=== PATIENT | male | born 1975 | race African-American/Black ===

== ENCOUNTER 2019-09-29 13:58 | Emergency (ER) | payer OTHER | END 2019-09-29 14:24 | disposition home or self-care (01) | LOC: ERS 13:58 | DX: U07.1 COVID-19 (principal); E11.9 Type 2 diabetes mellitus without complications; Z79.84 Long term (current) use of oral hypoglycemic drugs; Z79.899 Other long term (current) drug therapy | CPT/HCPCS: 87635; 99283; U0003 ==

== ENCOUNTER 2019-10-05 13:19 | Emergency (ER) | payer OTHER ==
[2019-10-05] MEDS ORDERED: Ketorolac Tromethamine 30 MG/ML VIAL ONE (13:51)
--- NOTE | 2019-10-05 14:18 | RAD ---
Exam: Chest one view HISTORY:Generalized weakness. COVID positive patient. Comparison: 09/28/2011, 08/10/2015 FINDINGS: Cardiac silhouette: Normal Aorta: Unremarkable Pulmonary vessels: Normal Costophrenic angles: Clear LUNGS: Diminished lung volumes. Patchy interstitial and alveolar opacities are presumed to represent atypical viral pneumonia. Pneumothorax: None Osseous abnormalities: None IMPRESSION: Viral pneumonia with patchy interstitial and alveolar opacities. Continued surveillance.
[2019-10-05 14:33] LABS: #Lymphocytes 1.5 thou/uL (1.20-3.40); #Monocytes 0.4 thou/uL (0.11-0.59); #Neutrophils 2.5 thou/uL (1.40-6.50); %Eosinophils 0.7 % (0.0-10.0); %Lymphocytes 34.2 % (21.0-51.0); %Monocytes 8.2 % (0.0-10.0); %Neutrophils 56.9 % (42.0-75.0); Mean Corpuscular HGB CONC 33.5 g/dL (32.0-36.0); Mean Corpuscular Hemoglobin 29.2 pg (27.0-31.0); Mean Corpuscular Volume 87.1 fL (78.0-98.0); Mean Platelet Volume 9.3 fL (7.4-10.4); Platelet Count 149 thou/uL (130-400); RBC Distribution Width 11.2 % (11.5-14.5); White Blood Cell (WBC) Count 4.4 thou/uL (4.8-10.8)
[2019-10-05 14:59] LABS: ALT (SGPT) 39 U/L (8-55); AST (SGOT) 38 U/L (5-34); Albumin 3.1 g/dL (3.5-5.0); Alkaline Phosphatase 52 U/L (40-110); Anion Gap 10 mmol/L (10-20); BUN (Urea Nitrogen) 9 mg/dL (8.9-20.6); Bilirubin, Total 0.6 mg/dL (0.2-1.2); CK (CPK) 53 U/L (30-200); Calc. Creatinine Clearance 0 mL/min (70-130); Calcium 7.9 mg/dL (7.8-10.44); Carbon Dioxide 28 mmol/L (22-29); Chloride 98 mmol/L (98-107); Estimated GFR-MDRD Greater than 90; Globulin 3.5 g/dL (2.4-3.5); Glucose 240 mg/dL (70-105); Lipase 14 U/L (8-78); Potassium 3.7 mmol/L (3.5-5.1); Protein, Total 6.6 g/dL (6.0-8.3); Sodium 132 mmol/L (136-145)
== END 2019-10-05 16:29 | disposition home or self-care (01) ==
LOC: ERS 13:19
DX: U07.1 COVID-19 (principal); E11.9 Type 2 diabetes mellitus without complications; Z79.84 Long term (current) use of oral hypoglycemic drugs; Z79.899 Other long term (current) drug therapy
CPT/HCPCS: 36415; 36416; 71045; 80053; 82550; 83690; 84484; 85025; 93005; 96361; 96374; J1885

== ENCOUNTER 2020-04-11 06:51 | Inpatient (IN) | payer OTHER, SELFPAY ==
[2020-04-11 07:14] LABS: #Eosinphils 0.3 thou/uL (0.0-0.7); #Lymphocytes 2.9 thou/uL (1.20-3.40); #Monocytes 0.5 thou/uL (0.11-0.59); #Neutrophils 3.9 thou/uL (1.40-6.50); %Basophils 0.6 % (0.0-1.0); %Eosinophils 3.7 % (0.0-10.0); %Lymphocytes 37.9 % (21.0-51.0); %Monocytes 6.5 % (0.0-10.0); %Neutrophils 51.4 % (42.0-75.0); Hemoglobin 15.4 g/dL (14.0-18.0); Mean Corpuscular HGB CONC 35.6 g/dL (32.0-36.0); Mean Corpuscular Hemoglobin 30.5 pg (27.0-31.0); Mean Corpuscular Volume 85.9 fL (78.0-98.0); Mean Platelet Volume 9.6 fL (7.4-10.4); Platelet Count 193 thou/uL (130-400); RBC Distribution Width 11.4 % (11.5-14.5); Red Blood Cell (RBC) Count 5.05 mill/uL (4.70-6.10); White Blood Cell (WBC) Count 7.7 thou/uL (4.8-10.8)
[2020-04-11 07:35] LABS: ALT (SGPT) 25 U/L (8-55); AST (SGOT) 23 U/L (5-34); Albumin 3.9 g/dL (3.5-5.0); Alkaline Phosphatase 111 U/L (40-110); Anion Gap 14 mmol/L (10-20); BUN (Urea Nitrogen) 10 mg/dL (8.9-20.6); Bilirubin, Total 0.4 mg/dL (0.2-1.2); Calc. Creatinine Clearance 0 mL/min (70-130); Calcium 9.1 mg/dL (7.8-10.44); Carbon Dioxide 27 mmol/L (22-29); Chloride 98 mmol/L (98-107); Globulin 4.3 g/dL (2.4-3.5); Glucose 273 mg/dL (70-105); Potassium 3.9 mmol/L (3.5-5.1); Protein, Total 8.2 g/dL (6.0-8.3); Sodium 135 mmol/L (136-145)
--- NOTE | 2020-04-11 07:41 | CT ---
CT BRAIN NONCONTRAST: DATE: 04/11/2020 7:32 AM HISTORY: Level 2 stroke: 44-year-old male with acute onset left sided weakness Dr. Johns gave verbal report to Dr. Guzman at 7:38 AM 04/11/2020 FINDINGS: There is no evidence of acute intra-axial or extra-axial hemorrhage. There is no midline shift or any other mass effect. There is no extra-axial fluid collection. There is no evidence of obstructive hydrocephalus. Calvarium is intact. IMPRESSION: No acute intracranial findings.
[2020-04-11] MEDS ORDERED: Nitroglycerin 0.4 MG TAB 1 EACH ONE ×2 (07:48→10:20)
[2020-04-11] MEDS ORDERED: Aspirin Chewable 81 MG TAB ONE (08:09)
--- NOTE | 2020-04-11 08:12 | CT ---
CT ANGIOGRAM NECK WITH CONTRAST CT ANGIOGRAM BRAIN WITH CONTRAST: DATE: 04/11/2020 7:44 AM HISTORY: 44-year-old male acute stroke. Acute left-sided weakness. At 8:09 AM 04/11/2020 Dr. Johns gave verbal report to nurse Raffi Prado. She will relay the message to Tiffani Guzman. TECHNIQUE: After IV contrast injection, arterial bolus chasing technique scan performed from AP window to vertex of head. Coronal and sagittal 3-D MIP reconstructions. FINDINGS: No calcified atherosclerotic plaque visualized in any vessel. Bilateral MCAs: No M1 segment thrombus or occlusion. Bilateral ACAs: A1 and A2 segments patent. Intracranial vertebrals: Right side dominant. Left side terminates in PICA. No occlusion. Basilar: Patent Bilateral basketball player: Bilateral P1 and P2 segments patent Bilateral P-comm patent. Bilateral carotid siphons: Patent Bilateral cervical ICAs: Normal Bilateral common carotids: Bovine origin on the left. Otherwise normal. Brachiocephalic: Normal Right subclavian: Normal Right vertebral: Dominant and normal. Left vertebral: Origin and proximal several centimeters obscured. No occlusion or high-grade acquired stenosis elsewhere IMPRESSION: Negative
[2020-04-11 08:13] LABS: Prothrombin Time 13.2 sec (12.0-14.7)
--- NOTE | 2020-04-11 08:15 | RAD ---
RADIOGRAPH CHEST 1 VIEW: DATE: 04/11/2020 HISTORY: 44-year-old male with chest pain FINDINGS: There are no airspace densities, pulmonary edema, pneumothorax, or cardiomegaly. The lateral costophr enic angles are sharp. IMPRESSION: No acute cardiopulmonary findings.
[2020-04-11 08:17] LABS: CK (CPK) 211 U/L (30-200); Lipase 36 U/L (8-78)
[2020-04-11] MEDS ORDERED: Nitroglycerin 50 MG/250 ML BOT 0 ML ONE (10:19)
[2020-04-11 10:37] LABS: Bilirubin Negative (Negative); Blood, Urine Negative (Negative); Clarity Clear (Clear); Glucose, Urine (Dipstick) Greater than 1000 mg/dL (Negative); Ketone, Urine Trace mg/dL (Negative); Leukocyte Negative Leu/uL (Negative); Nitrite Negative (Negative); Protein, Urine (Dipstick) 10 mg/dL (Neg-Trace); Urobilinogen Normal mg/dL (Less than 2)
[2020-04-11] MEDS ORDERED: Nitroglycerin 2% Ointment 1 INCH/1 GM Packet ONE (10:40)
[2020-04-11 10:41] LABS: Specific Gravity, Urine Greater than 1.060 (1.002-1.036)
[2020-04-11 10:42] LABS: Troponin I 0.022 ng/mL (< 0.028)
[2020-04-11 12:01] LABS: SARS-CoV-2 NAA Rapid Test Not Detected (NotDetected)
[2020-04-11] MEDS ORDERED: Acetaminophen 650 MG Suppository PR PRN (12:02)
[2020-04-11] MEDS ORDERED: Nitroglycerin 0.4 MG TAB (25 Tab Bottle) SL PRN (12:12)
[2020-04-11] MEDS ORDERED: Dextrose 50% Abboject 50 ML SYRINGE SLOW IVP PRN (12:13)
[2020-04-11] MEDS ORDERED: Dextrose 5% in Water 1,000 ML IV PRN (12:13)
--- NOTE | 2020-04-11 12:36 | PDOC.HHP ---
Hospitalist HPI - History of Present Illness History of Present Illness: ADMISSION DATE: 04/11/2020 TIME OF ASSESSMENT: 1100 PRIMARY CARE PHYSICIAN: None CHIEF COMPLAINT: Chest pain HPI: This is a 44-year-old gentleman who presents to the emergency department with complaints of left-sided chest pain and an elevated blood pressure in the 200s. Patient states he first started feeling unwell on Wednesday with nausea vomiting and diarrhea. He was having multiple stools a day up until Wednesday. Denies noting any blood per rectum. He was able to tolerate food intake after Wednesday and states he is attempted to maintain adequate hydration. He began to experience lightheadedness and weakness. Reports having difficulty sleeping due to feeling generally unwell. He woke up early hours this morning with left- sided chest pain which he describes as tightness with a stabbing sensation. It was a 7 out of 10 in severity and he had concurrent pain radiating up his left arm. Denies any trauma or injuries and did not have any reproducible chest wall pain. He noted his systolic blood pressure was elevated in the 200s. This prompted him to come into the emergency department. On arrival to the emergency department he had an EKG done which showed a normal sinus rhythm with a heart of 99. He was noted to have a complete right bundle branch block. He was given nitroglycerin which immediately relieved his chest discomfort. It was not until he was examined that he realize he was experie ncing reduced sensation in the left lower extremity. No numbness or weakness elsewhere. Denies any facial numbness weakness or slurred speech. Not experience any dizziness or staggering gait. No visual disturbances. Of note patient states that he tested positive for Covid in September 2019. ROS: Denies having any recent fevers chills or sweats. He does complain of discomfort in the back of his head and neck. He has good range of motion with no stiffness or rigidity. Denies having any urinary symptoms. No abdominal pain. Denies any shortness of breath or palpitations. No recent cough or hemoptysis. No lower extremity swelling. All other review systems are negative apart from what is mentioned above in HPI. ED COURSE: Patient came into the emergency department as a level [address] brain without contrast showed no acute intracranial findings. He had laboratory studies that showed a white cell count of 7.7, hemoglobin 15.4, hematocrit 43.4, platelets 193, neutrophils 51.4%. Sodium 135, BUN 10, creatinine 0.93, GFR greater than 90, potassium 3.9. Glucose was 73. Alk phos 111, total bilirubin 0.4, AST 23, ALT 25, albumin 3.9. Initial troponin negative. Lipase 36. CK 211. BNP less than 10. Chest x-ray demonstrated no acute cardiopulmonary findings. CT angiogram of the head and neck was unremarkable. Urinalysis notable for greater than 1000 glucose and trace ketones, otherwise negative. Rapid Covid testing and influenza a as well as B testing were all negative. Patient initially received 324 mg of baby aspirin and nitroglycerin sublingual 0.4 mg. A second dose of nitro was 2 hours later and then 1 inch of Nitro-Bid was applied. PAST MEDICAL HISTORY: 1. Type 2 diabetes mellitus 2. Hypertension 3. Hyperlipidemia PAST SURGICAL HISTORY: None SOCIAL HISTORY: Patient lives alone and is fully independent. Denies any tobacco use, alcohol consumption or drug use. FAMILY HISTORY: Noncontributory ALLERGIES: No known drug allergies CURRENT MEDICATIONS: 1. Glipizide 10 mg p.o. daily 2. Metformin 1000 mg p.o. daily 3. Losartan 50 mg p.o. daily 4. Atorvastatin 40 mg p.o. daily 5. Coreg 6.25 mg p.o. twice daily - Exam General Appearance: NAD, awake alert General - other findings: VS: Temp 98.9, HR RR 96, BP 165/92, RR 18, O2 sat 99% on room air Eye: PERRL, anicteric sclera Eye - other findings: left scleritis ENT: normocephalic atraumatic, no oropharyngeal lesions, moist mucosa Neck: supple, no lymphadenopathy Heart: RRR, no murmur, no gallops, no rubs, normal peripheral pulses Respiratory: CTAB, no wheezes, no rales, no ronchi, normal chest expansion Gastrointestinal: soft, non-tender, non-distended, normal bowel sounds Extremities: no edema Skin: normal turgor, no lesions, no rashes Neurological: cranial nerve grossly intact, no weakness Neurological - other findings: reduced sensation in LLE, denies having this before Musculoskeletal: normal tone, normal strength, no muscle wasting, generalized weakness Psychiatric: normal affect, normal behavior, A&O x 3 Hospitalist Results - Labs Result Diagrams: 04/11/20 07:00 04/11/20 07:00 Lab results: WBC 7.7 thou/uL (4.8-10.8) 04/11/20 07:00 Hgb 15.4 g/dL (14.0-18.0) 04/11/20 07:00 Hct 43.4 % (42.0-52.0) 04/11/20 07:00 MCV 85.9 fL (78.0-98.0) 04/11/20 07:00 Plt Count 193 thou/uL (130-400) 04/11/20 07:00 Neutrophils % 51.4 % (42.0-75.0) 04/11/20 07:00 Sodium 135 mmol/L (136-145) L 04/11/20 07:00 Potassium 3.9 mmol/L (3.5-5.1) 04/11/20 07:00 Chloride 98 mmol/L (98-107) 04/11/20 07:00 Carbon Dioxide 27 mmol/L (22-29) 04/11/20 07:00 BUN 10 mg/dL (8.9-20.6) 04/11/20 07:00 Creatinine 0.93 mg/dL (0.7-1.3) 04/11/20 07:00 Glucose 273 mg/dL (70-105) H 04/11/20 07:00 Calcium 9.1 mg/dL (7.8-10.44) 04/11/20 07:00 Total Bilirubin 0.4 mg/dL (0.2-1.2) 04/11/20 07:00 AST 23 U/L (5-34) 04/11/20 07:00 ALT 25 U/L (8-55) 04/11/20 07:00 Alkaline Phosphatase 111 U/L (40-110) H 04/11/20 07:00 Creatine Kinase 211 U/L (30-200) H 04/11/20 07:00 Troponin I 0.022 ng/mL (< 0.028) 04/11/20 10:09 B-Natriuretic Peptide Less than 10.0 pg/mL (0-100) 04/11/20 07:00 Serum Total Protein 8.2 g/dL (6.0-8.3) 04/11/20 07:00 Albumin 3.9 g/dL (3.5-5.0) 04/11/20 07:00 Lipase 36 U/L (8-78) 04/11/20 07:00 Urine Ketones Trace mg/dL (Negative) A 04/11/20 10:14 Urine Blood Negative (Negative) 04/11/20 10:14 Urine Nitrite Negative (Negative) 04/11/20 10:14 Ur Leukocyte Esterase Negative Cecil/uL (Negative) 04/11/20 10:14 - Radiology Interpretation CT scan - head Status: report reviewed by me Hospitalist H&P A/P - Problem (1) Chest pain Code(s): R07.9 - CHEST PAIN, UNSPECIFIED Status: Acute (2) Left leg paresthesias Code(s): R20.2 - PARESTHESIA OF SKIN Status: Acute (3) Light-headedness Code(s): R42 - DIZZINESS AND GIDDINESS Status: Acute (4) Nausea vomiting and diarrhea Code(s): R11.2 - NAUSEA WITH VOMITING, UNSPECIFIED; R19.7 - DIARRHEA, UNSPECIFIED Status: Acute (5) Diabetes mellitus type 2 in obese Code(s): E11.69 - TYPE 2 DIABETES MELLITUS WITH OTHER SPECIFIED COMPLICATION; E66.9 - OBESITY, UNSPECIFIED Status: Chronic (6) Hypertension Code(s): I10 - ESSENTIAL (PRIMARY) HYPERTENSION Status: Chronic (7) Hyperlipidemia Code(s): E78.5 - HYPERLIPIDEMIA, UNSPECIFIED Status: Chronic - Plan Plan: Chest pain- R/O ACS Currently pain free Repeat EKG to assess for dynamic changes Cardiac monitoring Continue nitro paste, aspirin and statin Check TSH and Mg+, fasting lipid panel Trend troponins Would benefit from stress test given comorbidities Awaiting COVID testing results LLE Paraesthesias, R/O CVA CT Brain and CTA Head/Neck unremarkable. Echo ordered Carotid US Neuro checks Neuro consult Lightheadedness, likely secondary to dehydration Continue IV fluids If diarrhea recurs, check stool studies Orthostatic BPs N/V/D Has settled, was taking Imodium at home If diarrhea recurs, check stool studies as mentioned above Zofran PRN for nausea Diabetes mellitus, type 2 Monitor glucose (Accu-cheks ACHS) Sliding scale initiated Hypertension Uncontrolled, improved with nitro pase Continue to monitor BP Resume home meds once verified Hyperlipidemia Resume statin Check lipid panel with AM labs GI Prophylaxis: Famotidine DVT Prophylaxis: Mechanical SCDs
[2020-04-11] MEDS ORDERED: Iopamidol-370 76% 500 ML 1 ML ONE (13:45)
[2020-04-11] MEDS ORDERED: Labetalol HCl 100 MG/20 ML VIAL ONE (15:23)
[2020-04-11] MEDS: Labetalol HCl 100 MG/20 ML VIAL SLOW IVP PRN (15:34)
--- NOTE | 2020-04-11 15:42 | CON ---
NEUROLOGY CONSULTATION DATE OF CONSULTATION: 04/11/2020 HISTORY OF PRESENT ILLNESS: Rule out stroke. HISTORY OF PRESENT ILLNESS: Mr. Murali Diop is a 44-year-old male with medical history significant for diabetes, hypertension, and hyperlipidemia, presented to the emergency room with left-sided chest pain and elevated blood pressure into 200s. The patient started feeling sick on Wednesday with nausea, vomiting, diarrhea. He had multiple stools and then unable to keep anything down. This morning, he woke up with left-sided chest pain with tightness. He also noted left lower extremity paresthesias, so Neurology was consulted to rule out stroke. The patient denies any focal weakness, slurred speech, double vision, blurred vision, vertigo, facial numbness, difficulty speaking or swallowing, or loss of vision associated with the episode of left lower extremity paresthesias. He was COVID positive in September 2019, but currently denies any fever or shortness of breath. REVIEW OF SYSTEMS: All systems reviewed and were negative except the pertinent positives and negatives mentioned in the HPI. PAST MEDICAL HISTORY: Diabetes mellitus, hypertension, hyperlipidemia. PAST SURGICAL HISTORY: None. SOCIAL HISTORY: The patient lives alone and is independent. Denies smoking, alcohol, or illegal drug use. FAMILY HISTORY: No family history of stroke. ALLERGIES: NO KNOWN DRUG ALLERGIES. HOME MEDICATIONS: 1. Glipizide 10 mg p.o. daily. 2. Metformin 1000 mg p.o. daily. 3. Losartan 50 mg p.o. daily. 4. Atorvastatin 40 mg p.o. daily. 5. Coreg 6.25 mg twice daily. VS: Temp 98.9, HR RR 96, BP 165/92, RR 18, O2 sat 99% on room air PHYSICAL EXAMINATION: General Appearance: NAD, awake alert Eye: PERRL, anicteric sclera ENT: normocephalic atraumatic, no oropharyngeal lesions, moist mucosa Neck: supple, no lymphadenopathy Heart: RRR, no murmur, no gallops, no rubs, normal peripheral pulses Respiratory: CTAB, no wheezes, no rales, no ronchi, normal chest expansion Gastrointestinal: soft, non-tender, non-distended, normal bowel sounds Extremities: no edema Skin: normal turgor, no lesions, no rashes Neurological: Mental status; the patient is alert and oriented to person, place, and time. Speech is clear. Cranial nerves 2 through 12 are intact. Motor, muscle tone and bulk are normal. Moving all 4 extremities equally and symmetrically. He does have generalized weakness. Sensory, decreased sensation to touch in the left lower extremity. Gait deferred due to patient's safety reason. DATA REVIEWED: I reviewed the labs, which were significant for mild hyponatremia at 135 and hyperglycemia at 273. Head CT reviewed, which was negative for acute intracranial pathology. Chest x-ray did not reveal any acute cardiopulmonary process. CT angiogram of the head and neck was unremarkable. Urinalysis showed greater than 1000 glucose and trace ketones, otherwise negative. Rapid COVID testing as well as influenza B was all negative. The patient was given aspirin and nitroglycerin in the ED. Lab results: WBC 7.7 thou/uL (4.8-10.8) 04/11/20 07:00 Hgb 15.4 g/dL (14.0-18.0) 04/11/20 07:00 Hct 43.4 % (42.0-52.0) 04/11/20 07:00 MCV 85.9 fL (78.0-98.0) 04/11/20 07:00 Plt Count 193 thou/uL (130-400) 04/11/20 07:00 Neutrophils % 51.4 % (42.0-75.0) 04/11/20 07:00 Sodium 135 mmol/L (136-145) L 04/11/20 07:00 Potassium 3.9 mmol/L (3.5-5.1) 04/11/20 07:00 Chloride 98 mmol/L (98-107) 04/11/20 07:00 Carbon Dioxide 27 mmol/L (22-29) 04/11/20 07:00 BUN 10 mg/dL (8.9-20.6) 04/11/20 07:00 Creatinine 0.93 mg/dL (0.7-1.3) 04/11/20 07:00 Glucose 273 mg/dL (70-105) H 04/11/20 07:00 Calcium 9.1 mg/dL (7.8-10.44) 04/11/20 07:00 Total Bilirubin 0.4 mg/dL (0.2-1.2) 04/11/20 07:00 AST 23 U/L (5-34) 01/07/21 07:00 ALT 25 U/L (8-55) 04/11/20 07:00 Alkaline Phosphatase 111 U/L (40-110) H 04/11/20 07:00 Creatine Kinase 211 U/L (30-200) H 04/11/20 07:00 Troponin I 0.022 ng/mL (< 0.028) 04/11/20 10:09 B-Natriuretic Peptide Less than 10.0 pg/mL (0-100) 04/11/20 07:00 Serum Total Protein 8.2 g/dL (6.0-8.3) 04/11/20 07:00 Albumin 3.9 g/dL (3.5-5.0) 04/11/20 07:00 Lipase 36 U/L (8-78) 04/11/20 07:00 Urine Ketones Trace mg/dL (Negative) A 04/11/20 10:14 Urine Blood Negative (Negative) 04/11/20 10:14 Urine Nitrite Negative (Negative) 04/11/20 10:14 Ur Leukocyte Esterase Negative Cecil/uL (Negative) 04/11/20 10:14 - Radiology Interpretation CT scan - head Status: report reviewed by me ASSESSMENT AND PLAN: (1) Left leg paresthesias Code(s): R20.2 - PARESTHESIA OF SKIN Status: Acute (2) Chest pain Code(s): R07.9 - CHEST PAIN, UNSPECIFIED Status: Acute (3) Light-headedness Code(s): R42 - DIZZINESS AND GIDDINESS Status: Acute (4) Nausea vomiting and diarrhea Code(s): R11.2 - NAUSEA WITH VOMITING, UNSPECIFIED; R19.7 - DIARRHEA, UNSPECIFIED Status: Acute (5) Diabetes mellitus type 2 in obese Code(s): E11.69 - TYPE 2 DIABETES MELLITUS WITH OTHER SPECIFIED COMPLICATION; E66.9 - OBESITY, UNSPECIFIED Status: Chronic (6) Hypertension Code(s): I10 - ESSENTIAL (PRIMARY) HYPERTENSION Status: Chronic (7) Hyperlipidemia Code(s): E78.5 - HYPERLIPIDEMIA, UNSPECIFIED Status: Chronic Mr. Murali Diop is consulted for left lower extremity paresthesias, associated with chest pain, to rule out stroke. Head CT reviewed, which was negative for acute intracranial pathology. CTA of the head and neck was unremarkable. Consider MRI of the brain to rule out acute intracranial process, 2D echo to evaluate for left ventricular ejection fraction, telemetry to rule out arrhythmias. Start aspirin and high-intensity statin for secondary stroke prevention. Check hemoglobin A1c, fasting lipid panel, and TSH. Neuro checks every 4 hours. Permissive control of blood pressure at this time. Strict control of blood glucose. PT/OT/speech. Continue medical management per primary team and Cardiology. We will consider EEG to rule out cortical irritability. We will continue to follow. Thank you for the consult. Job ID: [id number] GIAN
[2020-04-11 16:54] VITALS: BMI 32.1
[2020-04-11] MEDS ORDERED: HumaLOG 300 UNITS/3 ML VIAL ONE (17:52)
[2020-04-11] MEDS: HumaLOG 300 UNITS/3 ML VIAL SC PRN ×2 (17:55→21:16)
[2020-04-11] MEDS ORDERED: Atorvastatin Calcium 40 MG TAB PO SCH (21:00)
[2020-04-11] MEDS: Famotidine 20 MG TAB PO SCH (21:15)
[2020-04-12] MEDS ORDERED: Acetaminophen 325 MG TAB ONE ×2 (00:17→09:38)
[2020-04-12 05:28] LABS: #Basophils 0.1 thou/uL (0.0-0.2); #Eosinphils 0.2 thou/uL (0.0-0.7); #Lymphocytes 2.6 thou/uL (1.20-3.40); #Monocytes 0.4 thou/uL (0.11-0.59); %Eosinophils 3.8 % (0.0-10.0); %Lymphocytes 40.5 % (21.0-51.0); %Monocytes 6.6 % (0.0-10.0); %Neutrophils 48.1 % (42.0-75.0); Hemoglobin 13.3 g/dL (14.0-18.0); Mean Corpuscular HGB CONC 33.9 g/dL (32.0-36.0); Mean Corpuscular Hemoglobin 29.4 pg (27.0-31.0); Mean Corpuscular Volume 86.6 fL (78.0-98.0); Mean Platelet Volume 9.6 fL (7.4-10.4); Platelet Count 161 thou/uL (130-400); RBC Distribution Width 11.6 % (11.5-14.5); Red Blood Cell (RBC) Count 4.53 mill/uL (4.70-6.10); White Blood Cell (WBC) Count 6.3 thou/uL (4.8-10.8)
[2020-04-12] MEDS: HumaLOG 300 UNITS/3 ML VIAL SC PRN ×4 (05:29→21:14)
[2020-04-12 05:55] LABS: Anion Gap 13 mmol/L (10-20); BUN (Urea Nitrogen) 13 mg/dL (8.9-20.6); Calc. Creatinine Clearance 174 mL/min (70-130); Calcium 8.6 mg/dL (7.8-10.44); Carbon Dioxide 27 mmol/L (22-29); Cardiac Risk 4.2 (Less than 4.5); Chloride 100 mmol/L (98-107); Cholesterol 104 mg/dl (< 200 Desired); Glucose 323 mg/dL (70-105); HDL Cholesterol 25 mg/dL (>60 Neg Risk); LDL Cholesterol, Calculated 27 mg/dL; Potassium 3.8 mmol/L (3.5-5.1); Sodium 136 mmol/L (136-145); Triglycerides 258 mg/dL (Less than 150)
[2020-04-12] MEDS ORDERED: FLU VACC QS2020-21(6MOS UP)/PF 60 MCG/0.5 ML SYRINGE IM ONE (09:00)
[2020-04-12] MEDS ORDERED: Famotidine 20 MG TAB ONE (09:24)
[2020-04-12] MEDS ORDERED: Aspirin Chewable 81 MG TAB ONE (09:25)
[2020-04-12] MEDS: Aspirin Chewable 81 MG TAB PO SCH (09:36)
[2020-04-12] MEDS: Famotidine 20 MG TAB PO SCH ×2 (09:36→21:00)
--- NOTE | 2020-04-12 09:43 | CT ---
CT ANGIOGRAM NECK WITH CONTRAST CT ANGIOGRAM BRAIN WITH CONTRAST: DATE: 04/11/2020 7:44 AM HISTORY: 44-year-old male acute stroke. Acute left-sided weakness. At 8:09 AM 04/11/2020 Dr. Johns gave verbal report to nurse Raffi Prado. She will relay the message to Tiffani Guzman. TECHNIQUE: After IV contrast injection, arterial bolus chasing technique scan performed from AP window to vertex of head. Coronal and sagittal 3-D MIP reconstructions. FINDINGS: No calcified atherosclerotic plaque visualized in any vessel. Bilateral MCAs: No M1 segment thrombus or occlusion. Bilateral ACAs: A1 and A2 segments patent. Intracranial vertebrals: Right side dominant. Left side terminates in PICA. No occlusion. Basilar: Patent Bilateral chief information officer: Bilateral P1 and P2 segments patent Bilateral P-comm patent. Bilateral carotid siphons: Patent Bilateral cervical ICAs: Normal Bilateral common carotids: Bovine origin on the left. Otherwise normal. Brachiocephalic: Normal Right subclavian: Normal Right vertebral: Dominant and normal. Left vertebral: Origin and proximal several centimeters obscured. No occlusion or high-grade acquired stenosis elsewhere IMPRESSION: Negative Transcribed Date/Time: 04/12/2020 9:42 AM
[2020-04-12] MEDS: Acetaminophen 325 MG TAB PO PRN ×2 (09:49→17:09)
--- NOTE | 2020-04-12 11:15 | PDOC.EEG ---
Neurology EEG Report - Report Report: This EEG was performed using 24 channel [employer] video EEG machine with 24 disc donny ctrodes. This was an extended 2 hours 9 minutes of inpatient video EEG recording. Digital analysis of the EEG was done for spike and seizure detection which revealed no abnormalities. Background: There is a non-sustained posterior background rhythm of 8.5 -9 Hz. The background rhythm attenuates with eye opening and enhances with eye closure. Hyperventilation: Not performed. Photic Stimulation: Not performed Sleep: Drowsiness and sleep are observed. EEG Diagnosis: Normal awake, drowsy and sleep EEG.
[2020-04-12] MEDS ORDERED: Losartan 25 MG TAB PO SCH (12:15)
[2020-04-12] MEDS ORDERED: Magnevist 469MG/ML 20 ML VIAL ONE (13:39)
--- NOTE | 2020-04-12 14:40 | MRI ---
MRI of thebrain with and without contrast: 04/12/2020 COMPARISON:None available HISTORY:Left arm pain, assess for acute infarction, left-sided weakness and high blood pressure TECHNIQUE: Multiplanar multisequence MR imaging of thebrain with and without contrast Findings:The diffusion weighted imaging demonstrates no evidence for acute infarction. The axial gradient echo imaging demonstrates no evidence for intracranial hemorrhage. The visualized paranasal sinuses and mastoid air cells appear well-aerated. 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 There is no midline shift or mass effect. No ventricular enlargement. Arterial flow voids at the axial level of the skull base appear grossly unremarkable on the T2-weight ed imaging. The postcontrast imaging demonstrates no abnormal enhancement within the brain parenchyma. IMPRESSION:No acute findings.
--- NOTE | 2020-04-12 14:44 | MRI ---
MRI cervical spine noncontrast: 04/12/2020 HISTORY: 44 year old male with cervical radiculopathy. Cervicalgia, and left shoulder and upper extremity pain and numbness. COMPARISON: None FINDINGS: Vertebral body heights are maintained. Cervical spinal cord is normal in size and signal. 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 This is exacerbated at some levels by cervical spondylosis. No major spondylolisthesis. Mostly low-grade bilateral facet DJD at multiple levels. Disc space narrowing is mild to moderate at C3-4, moderate at C4-5, mild to moderate at C5-6, and mod erate at C6-7. Endplate bone marrow edema on the right side at C4-5, and more extensively at C6-7, consistent with M odic type I changes. C1-2: No additional findings C2-3: No additional findings. C3-4: Little or no exacerbation of the developmentally small caliber spinal canal by minimal central disc protrusion (mild to moderate central stenosis. No neural foraminal stenosis C4-5: Small to moderate-sized bilateral uncinate process osteophytes cause severe right and moderate to severe left neural foraminal stenosis. Prominent broad-based disc protrusion versus disc-osteophyte complex indents ventral surface of spinal cord. Severe central spinal canal stenosis. C5-6: Moderate size bilateral uncinate process osteophytes causing severe bilateral neural foraminal stenosis. Broad-based disc protrusion or disc-osteophyte complex abuts ventral surface of spinal cord. Moderate to severe central spinal canal stenosis. C6-7: Broad-based disc-osteophytic bar complex encroaches upon anterior aspect of spinal canal. Moder ate central spinal canal stenosis. Small bilateral uncinate process osteophytes. Moderate right and severe left neural foraminal stenosis. C7-T1: No central or neural foraminal stenosis. IMPRESSION: 1.) Cervical spondylosis with multilevel mild and moderate degenerative disc disease. 2) multiple levels of high-grade central spinal canal stenosis (worst at C4-5), and high-grade bilate ral neural foraminal stenosis and stenosis (including severe). 3) high-grade Modic type I bone marrow edema at C6-7.
--- NOTE | 2020-04-12 15:21 | PDOC.NEUPN ---
- Subjective Encounter Date: 04/12/20 Subjective: Mr. Diop denies any new complaints in the last 24 hours. He continues to have left-sided paresthesias more in the left lower extremity - Objective Vital Signs & Weight: Vital Signs (12 hours) Temp Pulse Pulse Resp BP BP BP 04/12/20 13:13 88 164/103 H 175/107 H 04/12/20 12:00 98.0 F 92 20 148/102 H 04/12/20 08:00 98.6 F 98 15 151/93 H 04/12/20 03:57 98.1 F 92 18 157/97 H Pulse Ox 04/12/20 13:13 04/12/20 12:00 97 04/12/20 08:00 94 L 04/12/20 03:57 93 L Weight Admit Weight 230 lb Weight 230 lb I&O: 04/11/20 04/12/20 04/13/20 06:59 06:59 06:59 Intake Total 810 Output Total 500 Balance 310 Result Diagrams: 04/12/20 05:00 04/12/20 05:00 Additional Labs: Accuchecks 04/12/20 04/12/20 04/11/20 11:52 05:26 21:15 POC Glucose 323 H 288 H 330 H 04/11/20 17:50 POC Glucose 351 H Radiology Reviewed by me: Yes EKG Reviewed by me: Yes ROS - Review of Systems Constitutional: denies: fever, chills, sweats, weakness, malaise, other Eyes: denies: pain, vision change, conjunctivae inflammation, eyelid inflammation, redness, other ENT: denies: ear pain, ear discharge, nose pain, nose discharge, nose congestion, mouth pain, mouth swelling, throat pain, throat swelling, other Respiratory: reports: shortness of breath Genitourinary: denies: dysuria, frequency, incontinence, hematuria, retention, o ther Musculoskeletal: denies: neck pain, shoulder pain, arm pain, back pain, hand pain, leg pain, foot pain, other Skin: denies: rash, lesions, laura, bruising, other Neurological: reports: numbness - Medication Medications: Active Medications Generic Name Dose Route Start Last Admin Trade Name Freq PRN Reason Stop Dose Admin Acetaminophen 650 mg 04/11/20 12:02 04/12/20 09:49 Acetaminophen 325 Mg Tab PO 650 mg Q4H PRN Administration Headache/Fever/Mild Pain (1-3) Acetaminophen 650 mg 04/11/20 12:02 04/12/20 00:19 Acetaminophen 650 Mg Suppository IN 650 mg Q4H PRN Administration Headache/Fever/Mild Pain (1-3) Aspirin 81 mg 04/12/20 09:00 04/12/20 09:36 Aspirin Chewable 81 Mg Tab PO 81 mg DAILY ALLEN Administration Atorvastatin Calcium 80 mg 04/11/20 21:00 04/11/20 21:16 Atorvastatin Calcium 40 Mg Tab PO 80 mg HS ALLEN Administration Famotidine 20 mg 04/11/20 21:00 04/12/20 09:36 Famotidine 20 Mg Tab PO 20 mg BID ALLEN Administration Insulin Human Lispro 0 units 04/11/20 12:13 04/12/20 12:35 Humalog 300 Units/3 Ml Vial SC 5 unit .MILD SLIDING SCALE PRN Administration Mild Correctional Scale Insulin Human Lispro 0 units 04/11/20 12:13 04/11/20 21:16 Humalog 300 Units/3 Ml Vial SC 4 unit .BEDTIME SLIDING SC PRN Administration Bedtime Correctional Scale Labetalol HCl 10 mg 04/11/20 15:19 04/11/20 15:34 Labetalol Hcl 100 Mg/20 Ml Vial SLOW IVP 10 mg Q6H PRN Administration SBP >160 - Exam General Appearance: awake alert Eye: PERRL ENT: normocephalic atraumatic Neck: supple Respiratory: CTAB Cardiovascular: no murmur Gastrointestinal: soft Extremities: no cyanosis Skin: normal turgor Neurological: no new deficit Musculoskeletal: normal tone, normal strength, no muscle wasting PSYCH: normal affect, normal behavior, A&O x 3 Results - Labs Result Diagrams: 04/12/20 05:00 04/12/20 05:00 Lab results: WBC 6.3 thou/uL (4.8-10.8) 04/12/20 05:00 Hgb 13.3 g/dL (14.0-18.0) L 04/12/20 05:00 Hct 39.2 % (42.0-52.0) L 04/12/20 05:00 MCV 86.6 fL (78.0-98.0) 04/12/20 05:00 Plt Count 161 thou/uL (130-400) 04/12/20 05:00 Neutrophils % 48.1 % (42.0-75.0) 04/12/20 05:00 Sodium 136 mmol/L (136-145) 04/12/20 05:00 Potassium 3.8 mmol/L (3.5-5.1) 04/12/20 05:00 Chloride 100 mmol/L (98-107) 04/12/20 05:00 Carbon Dioxide 27 mmol/L (22-29) 04/12/20 05:00 BUN 13 mg/dL (8.9-20.6) 04/12/20 05:00 Creatinine 0.81 mg/dL (0.7-1.3) 04/12/20 05:00 Glucose 323 mg/dL (70-105) H 04/12/20 05:00 Lactic Acid 2.0 mmol/L (0.5-2.2) 04/11/20 13:48 Calcium 8.6 mg/dL (7.8-10.44) 04/12/20 05:00 Total Bilirubin 0.4 mg/dL (0.2-1.2) 04/11/20 07:00 AST 23 U/L (5-34) 04/11/20 07:00 ALT 25 U/L (8-55) 04/11/20 07:00 Alkaline Phosphatase 111 U/L (40-110) H 04/11/20 07:00 Creatine Kinase 211 U/L (30-200) H 04/11/20 07:00 Troponin I 0.018 ng/mL (< 0.028) 04/11/20 18:06 C-Reactive Protein 0.75 mg/dL (= or < 0.5) H 04/11/20 13:49 B-Natriuretic Peptide Less than 10.0 pg/mL (0-100) 04/11/20 07:00 Serum Total Protein 8.2 g/dL (6.0-8.3) 04/11/20 07:00 Albumin 3.9 g/dL (3.5-5.0) 04/11/20 07:00 Lipase 36 U/L (8-78) 04/11/20 07:00 Urine Ketones Trace mg/dL (Negative) A 04/11/20 10:14 Urine Blood Negative (Negative) 04/11/20 10:14 Urine Nitrite Negative (Negative) 04/11/20 10:14 Ur Leukocyte Esterase Negative Cecil/uL (Negative) 04/11/20 10:14 - Radiology Interpretation MRI - head Additional Comment: MRI of the brain did not reveal any acute intracranial pathology. PN A/P (1) Left leg paresthesias Code(s): R20.2 - PARESTHESIA OF SKIN Status: Acute (2) Light-headedness Code(s): R42 - DIZZINESS AND GIDDINESS Status: Acute (3) Chest pain Code(s): R07.9 - CHEST PAIN, UNSPECIFIED Status: Acute (4) Nausea vomiting and diarrhea Code(s): R11.2 - NAUSEA WITH VOMITING, UNSPECIFIED; R19.7 - DIARRHEA, UNSPECIFIED Status: Acute (5) Diabetes mellitus type 2 in obese Code(s): E11.69 - TYPE 2 DIABETES MELLITUS WITH OTHER SPECIFIED COMPLICATION; E6 6.9 - OBESITY, UNSPECIFIED Status: Chronic (6) Hyperlipidemia Code(s): E78.5 - HYPERLIPIDEMIA, UNSPECIFIED Status: Chronic (7) Hypertension Code(s): I10 - ESSENTIAL (PRIMARY) HYPERTENSION Status: Chronic - Plan Daily Plan: PT/OT, out of bed/ambulate Mr. Bradshaw is a 44-year-old male who was consulted for left lower extremity paresthesias but no weakness. Patient also complaining of some numbness in the left upper extremity associated with lightheadedness and chest pain. Initial head CT reviewed which was negative for acute intracranial pathology. CTA of the head and neck did not reveal hemodynamically significant stenosis. MRI of the brain reviewed which was negative for acute intracranial pathology. Cervical spine MRI showed moderate cervical spondylosis and high-grade stenosis at the C4-5 level . Consider neurosurgery input. Consider imaging of the lumbar spine. Neurochecks every 4 hours. EEG reviewed which was negative for seizure activity. 2D echo showed ejection fraction of 50 to 55%. No thrombus or PFO Cardiology on board regarding evaluation for chest pain. Continue home medications. Continue medical management per primary team . PT/OT Plan and results were discussed with the patient and the nursing staff
--- NOTE | 2020-04-12 15:51 | PDOC.FMACP ---
Advance Care Planning - Problem (1) Palliative care encounter Status: Acute Code(s): Z51.5 - ENCOUNTER FOR PALLIATIVE CARE (2) Left leg paresthesias Status: Acute Code(s): R20.2 - PARESTHESIA OF SKIN (3) Light-headedness Status: Acute Code(s): R42 - DIZZINESS AND GIDDINESS (4) Diabetes mellitus type 2 in obese Status: Chronic Code(s): E11.69 - TYPE 2 DIABETES MELLITUS WITH OTHER SPECIFIED COMPLICATION; E66.9 - OBESITY, UNSPECIFIED (5) Hyperlipidemia Status: Chronic Code(s): E78.5 - HYPERLIPIDEMIA, UNSPECIFIED (6) Hypertension Status: Chronic Code(s): I10 - ESSENTIAL (PRIMARY) HYPERTENSION - Note Participants: patient, palliative care Summary: Palliative care introduced Advanced Care Planning. The diagnosis, prognosis and goals of care were discussed. Appropriate forms and documentation to accomplish the goals of care were discussed. All questions were answered. Elected to complete MPOA, original given to patient and copy placed on chart for medical records. Directive to Physician provided for patient review. He elected not to complete at this time, however will consider in the future. Continue with full resuscitation and aggressive measures at this time. Please also refer to Palliative Care notes in note section. Palliative care will sign off as Directives addressed. If we can assist in the future with revisiting goal of care, complex decision making or revisiting Directive to physician please re consult our team. Thank you for this very appropriate consult. Time Spent (mins): 15
--- NOTE | 2020-04-12 16:59 | CON ---
DATE OF CONSULTATION: HISTORY OF PRESENT ILLNESS: The patient is a 44-year-old gentleman, who presented with headaches, left-sided weakness, and chest discomfort. The patient has a history of hypertension and diabetes mellitus. The patient has no known cardiac history. The patient was in his usual state of health when he acutely developed headaches. He noticed that his left arm was weak and numb as well as he had difficulty with dizziness and weakness. The patient also reported having left-sided chest discomfort. He reports that this has been a persistent discomfort throughout the last day. The patient states this lasted through the morning and has finally resolved. The patient denies having any PND or orthopnea. The patient has multiple cardiac risk factors including diabetes mellitus, hypertension, and dyslipidemia. PAST SURGICAL HISTORY: None SOCIAL HISTORY: Nonsmoker. MEDICATIONS: 1. Glipizide 10 daily. 2. Metformin 1000 daily. 3. Losartan 50 daily. 4. Lipitor 40 at bedtime. 5. Coreg 6.25 b.i.d. ALLERGIES: NO KNOWN DRUG ALLERGIES. FAMILY HISTORY: No strong family history of coronary artery disease. REVIEW OF SYSTEMS: Ten-point system otherwise unremarkable. PHYSICAL EXAMINATION: GENERAL: This is a well-developed gentleman, in no acute distress. VITAL SIGNS: Blood pressure was 175/107. NECK: No jugular venous distention. LUNGS: Clear to auscultation. HEART: Regular rate and rhythm. Normal S1 and S2. No murmurs. ABDOMEN: Nondistended. EXTREMITIES: Show no edema. VASCULAR: Radial pulses 2+. LABORATORY DATA: Sodium 136, potassium 3.8, chloride 100, bicarbonate 27, BUN 13, creatinine 0.81, and glucose is 323. His cholesterol is 104, triglycerides 258, LDL 27, and HDL 25. White blood cell count is 6.3, hemoglobin 13.3, hematocrit 39.2, and platelets are 161. IMAGING DATA: EKG normal sinus rhythm with left atrial enlargement and a right bundle-branch block. Echocardiogram normal left ventricular ejection fraction of 55% to 60% with moderate left ventricular hypertrophy. IMPRESSION: 1. Chest pain, probably secondary to poorly controlled hypertension. 2. Malignant hypertension. 3. Diabetes mellitus. 4. Dyslipidemia. 5. Diabetes. 6. Obesity. 7. Possible cerebrovascular accident. PLAN: This gentleman presented with left-sided weakness, chest pain, and malignant hypertension. The patient's chest pain has resolved once his blood pressure was controlled. His EKG shows no acute changes. The patient states he needs to be more compliant with his blood pressure medications and have been in control of his diabetes. We would recommend outpatient followup once the patient recovers from his acute illness. Neurology is evaluating the patient for a CVA and has recommended followup with Neurosurgery. We will follow this patient with you through his hospitalization. Job ID: [id number] MTDD
[2020-04-12] MEDS ORDERED: Carvedilol 6.25 MG TAB PO SCH (17:00)
[2020-04-12] MEDS: Carvedilol 6.25 MG TAB PO SCH (17:10)
--- NOTE | 2020-04-12 19:23 | PDOC.HOSPP ---
- Subjective Encounter Date: 04/12/20 Encounter Time: 12:00 Subjective: F/u: chest pain The patient states that his chest pain resolved. He does not get chest pain on exertion. He reports left arm numbness but no weakness. He reports neck pain and difficulty turning his neck . He reports an abnormal stress test in the past. He has had difficulty controlling his blood pressure lately He also states that his right side of his face keeps "lifting up" and is not sure why this keeps happening. He complains of severe headaches associated with this - Objective Vital Signs & Weight: Vital Signs (12 hours) Temp Pulse Pulse Resp BP BP BP 04/12/20 16:00 97.7 F 83 16 165/88 H 04/12/20 13:13 88 164/103 H 175/107 H 04/12/20 12:00 98.0 F 92 20 148/102 H 04/12/20 08:00 98.6 F 98 15 151/93 H Pulse Ox 04/12/20 16:00 96 04/12/20 13:13 04/12/20 12:00 97 04/12/20 08:00 94 L Weight Admit Weight 230 lb Weight 230 lb I&O: 04/11/20 04/12/20 04/13/20 06:59 06:59 06:59 Intake Total 810 800 Output Total 500 Balance 310 800 Result Diagrams: 04/12/20 05:00 04/12/20 05:00 Additional Labs: Accuchecks 04/12/20 04/12/20 04/12/20 17:03 11:52 05:26 POC Glucose 247 H 323 H 288 H 04/11/20 04/11/20 21:15 17:50 POC Glucose 330 H 351 H Hospitalist ROS - Review of Systems Constitutional: denies: fever, chills - Medication Medications: Active Medications Generic Name Dose Route Start Last Admin Trade Name Freq PRN Reason Stop Dose Admin Acetaminophen 650 mg 04/11/20 12:02 04/12/20 17:09 Acetaminophen 325 Mg Tab PO 650 mg Q4H PRN Administration Headache/Fever/Mild Pain (1-3) Acetaminophen 650 mg 04/11/20 12:02 04/12/20 00:19 Acetaminophen 650 Mg Suppository AR 650 mg Q4H PRN Administration Headache/Fever/Mild Pain (1-3) Aspirin 81 mg 04/12/20 09:00 04/12/20 09:36 Aspirin Chewable 81 Mg Tab PO 81 mg DAILY ALLEN Administration Carvedilol 12.5 mg 04/12/20 17:00 04/12/20 17:10 Carvedilol 6.25 Mg Tab PO 12.5 mg BID-WM ALLEN Administration Famotidine 20 mg 04/11/20 21:00 04/12/20 09:36 Famotidine 20 Mg Tab PO 20 mg BID ALLEN Administration Insulin Human Lispro 0 units 04/11/20 12:13 04/12/20 17:09 Humalog 300 Units/3 Ml Vial SC 3 unit .MILD SLIDING SCALE PRN Administration Mild Correctional Scale Insulin Human Lispro 0 units 04/11/20 12:13 04/11/20 21:16 Humalog 300 Units/3 Ml Vial SC 4 unit .BEDTIME SLIDING SC PRN Administration Bedtime Correctional Scale Labetalol HCl 10 mg 04/11/20 15:19 04/11/20 15:34 Labetalol Hcl 100 Mg/20 Ml Vial SLOW IVP 10 mg Q6H PRN Administration SBP >160 - Exam General Appearance: NAD, awake alert Eye: PERRL, anicteric sclera ENT: normocephalic atraumatic, no oropharyngeal lesions ENT - other findings: right facial swelling Neck: no JVD Heart: RRR, no murmur, no gallops, no rubs Respiratory: CTAB, no wheezes, no rales, no ronchi Gastrointestinal: soft, non-tender, non-distended, normal bowel sounds Extremities: no cyanosis, no clubbing, no edema Skin: normal turgor, no lesions Neurological - other findings: right ptosis. Musculoskeletal: normal tone, normal strength, no muscle wasting Psychiatric: A&O x 3 Hosp A/P - Plan MRI cervical spine: cervical spondylosis with multilevel degenerative changes. High grade central spinal stenosis worst at C4-C5 and high grade bilateral neural foraminal stenosis with bone marrow edema at C6-C7 This is a 44 year old male who presented with chest pain , hyperetensive urgecny and left arm numbness Hypertensive Urgency - BP was 170/100. I resumed home lisinopril and coreg for now Chest pain - troponin negative times three. Will consult cardiology. I do not see any abnormal stress tests on file but patient reports this was the case High grade cervical spinal stenosis with left arm radiculopathy - MRi cervical spine shows spinal stenosis around C4-C5 and bone marrow edema at C6-C7 - CT head, CTA head and neck and MRI brain show no significant stenosis and no stroke - will consult neurosurgery - continue with physical therapy and occupational therapy Will convert to inpatient status pending adequate control of BP, cardiology and neurosurgery eval
[2020-04-12] MEDS ORDERED: Atorvastatin Calcium 40 MG TAB PO SCH (21:00)
[2020-04-12] MEDS: Labetalol HCl 100 MG/20 ML VIAL SLOW IVP PRN (21:00)
[2020-04-13] MEDS ORDERED: traMADol HCl 50 MG TAB PO PRN (00:10)
--- NOTE | 2020-04-13 00:39 | CON ---
DATE OF CONSULTATION: 04/13/2020 HISTORY OF PRESENT ILLNESS: The patient is a 44-year-old male with a past medical history of diabetes, hypertension, and hyperlipidemia, who presented to the emergency department on 04/11/2020 for acute onset left-sided chest pain in the context of significant hypertension as well as some radiation down into the left chest and left arm dysesthesias. The patient was admitted to the medical service for cardiac rule out, as well as Neurology evaluation for stroke ro. The patient did not have any acute EKG changes and his pain has improved significantly once his blood pressure was better controlled. He is being followed by Cardiology and they are getting stress test. He was evaluated with MRI of the brain, which was unremarkable. During his admission, the patient also began complaining of some discomfort in the neck. He received a cervical MRI, which is notable for multilevel degenerative changes, most pronounced at C4-C5 with some moderate stenosis at this level. His neck pain has improved since admission, left arm dysesthesias are resolved at this time. PAST MEDICAL HISTORY: Hypertension, hyperlipidemia, diabetes. PAST SURGICAL HISTORY: Denies any prior surgery. FAMILY HISTORY: Noncontributory. ALLERGIES: HE HAS NO KNOWN DRUG ALLERGIES. REVIEW OF SYSTEMS: Per HPI. PHYSICAL EXAMINATION: VITAL SIGNS: Stable. CONSTITUTIONAL: Awake and alert, in no acute distress. HEAD: Normocephalic and atraumatic. EYES: PERRLA. Extraocular movements intact. ENT: [place], intact, and moist. He has normal voice. NECK: Nontender on my exam. Free active range of motion. No meningismus. No nuchal rigidity. MUSCULOSKELETAL: Free active range of motion of all extremities. No focal motor weakness is noted. NEUROLOGIC: A and O x4. No focal neurologic deficits at this time. ASSESSMENT AND PLAN: Cervical degenerative disk disease, left-sided UE dysesthesias, which seems to have improved. He does have some significant degenerative changes of the cervical spine, particularly at C4 and C5, but the overall degree of nerve compression is quite moderate. He has significantly improved and having no radicular symptoms at this time. He is still complaining of some soreness at his neck, but we will recommend conservative course of treatment with pain control and physical therapy. We will arrange followup with our office in a few weeks to reassess his progress. No acute neurosurgical intervention is anticipated at this time. Discussed this plan with Dr. Gomes, who is in agreement. Job ID: [id number] MTDD
[2020-04-13] MEDS: Labetalol HCl 100 MG/20 ML VIAL SLOW IVP PRN ×2 (03:21→06:19)
[2020-04-13] MEDS: Acetaminophen 325 MG TAB PO PRN (06:17)
[2020-04-13] MEDS ORDERED: Insulin Glargine 25 UNITS in Pre-Filled Syringe 1 EACH SC SCH (09:00)
[2020-04-13] MEDS ORDERED: Losartan 25 MG TAB PO SCH (09:00)
[2020-04-13] MEDS ORDERED: Naproxen 500 MG TAB PO SCH (09:00)
[2020-04-13] MEDS ORDERED: Cyclobenzaprine 10 MG TAB PO PRN (09:09)
[2020-04-13] MEDS ORDERED: Gabapentin 100 MG CAP PO PRN (09:10)
[2020-04-13] MEDS: Famotidine 20 MG TAB PO SCH (10:39)
[2020-04-13] MEDS: Carvedilol 6.25 MG TAB PO SCH (10:41)
[2020-04-13] MEDS: Aspirin Chewable 81 MG TAB PO SCH (10:41)
[2020-04-13] MEDS ORDERED: Carvedilol 6.25 MG TAB PO SCH ×2 (11:30→13:00)
[2020-04-13 12:29] VITALS: BP 161/84; TEMP 98.6
[2020-04-13] MEDS: HumaLOG 300 UNITS/3 ML VIAL SC PRN (13:09)
--- NOTE | 2020-04-13 17:48 | PDOC.DS.DS ---
Provider - Provider Date of Admission: 04/11/20 09:11 Date of Discharge: 04/13/20 Admitting Provider: Jack Harris MD Consultations: Cardiology (Dr. Lincoln Garcia) Primary Care Physician: WESLY CORONADO MD Course - Hospital Course Hospital Course: Discharge Diagnoses: 1. Chest pain 2. Hypertensive Urgency 3. Cervical Spinal canal stenosis 4. Type II Diabetes Brief HPI: This is a 44 year old male with past medical history of diabetes, hypertension, who presented to the ER with left arm numbness, abdominal cramping, diarrhea. The patient also complained of left sided chest tightness. His blood pressure upon presentation was 202/109. He was admitted to the hospital for further workup. Hospital Course: Chest pain/hypertensive urgency: the patient reported chest pain adn left arm pain. Troponins were negative times three. The patient reported an abnormal stress test in the past, therefore cardiology was consulted. The patient's chest pain resolved with treatment of his high blood pressure so no additional testing was done. The patient's coreg was icnreased to 25 mg bid and his blood pressure came down to 130 systolic at the time of discharge. Neck pain/left arm pain and parasthesias: the patient reported severe neck pain radiating to his head. CT head/CTA head and neck and MRI brain showed no findings of stroke. MRI cervical spine showed high grade spinal stenosis worst at C5-C6 and bone marrow edema at C6-C7. Neurosurgery was consulted, recommended PT for two weeks and outpatient follow up in two weeks. THe patient's pain improved with naproxen, flexeril and gabapentin so he was discharged with prescriptions for these. He was given a prescription for outpatient PT. He expressed concern about not having insurance and discussed with neurosurgery who states he needs to call on Wednesday and discuss the cost of the visit directly with the clinic. Diabetes: The patient had an A1C of 11 three weeks ago. He will resume his home insulin and follow with his PCP. Pertinent Studies: CTA head and neck 04/12: negative Chest X ray 04/11: no acute findings CT brain: no acute disease MRI brain: no acute findings MRI cervical spine: cervical spondylosis with multilevel mild and moderate degenerative disc disease. Multiple levels of high grade central spinal canal stenosis. high grade meng marrow edema at C6-C7 Resuscitation Status: 04/11/20 12:02 Resuscitation Status Routine Co-Sign Provider: Resuscitation Status: FULL: Full Resuscitation - Labs Lab Results: 04/12/20 05:00 04/12/20 05:00 Abnormal Lab Results - Last 48 hrs 04/12/20 05:00: Triglycerides 258 H 04/12/20 05:00: RBC 4.53 L, Hgb 13.3 L, Hct 39.2 L Microbiology - Entire Visit 04/11/20 23:45 Stool Stool Culture - Preliminary 04/11/20 23:45 Stool Escherichia coli 0157 Culture - Final 04/11/20 23:45 Stool Stool Lactoferrin - Final 04/11/20 23:45 Stool Campylobacter Antigen Assay - Final 04/11/20 23:45 Stool Shiga Toxin Test - Final 04/11/20 23:45 Stool - Pending C. difficile GDH Antigen & Toxins - Final - Physical Exam Vitals: Vital Signs (12 hours) Temp Pulse Resp BP BP Pulse Ox 04/13/20 13:10 161/84 H 04/13/20 11:34 98.6 F 94 16 161/84 H 95 04/13/20 10:41 168/94 H 04/13/20 07:53 98.3 F 88 20 168/94 H 98 04/13/20 06:19 87 Weight Admit Weight 230 lb Weight 230 lb Physical Exam: General: alert, awake, oriented times three CV: RRR, no murmurs, rubs, gallops Neuro: mild ptosis of right eye. Mild swelling of right cheek. Abdomen: +BS, soft, nontender, nondistended Neck: pain with lateral flexion to both sides. Mild tenderness paraspinally. He has pain in his neck when lifting his arms above 90 degrees Extremities: no edema Problem - Time spent with Patient (mins): 40 Plan - Discharge Medications Prescriptions: Carvedilol [Coreg] 25 mg PO BID #60 tablet Cyclobenzaprine [Flexeril] 5 mg PO TID PRN #12 tab PRN Reason: Muscle Spasm Naproxen [Naprosyn] 500 mg PO BID #60 tab Gabapentin [Neurontin] 100 mg PO TID PRN #90 cap PRN Reason: Moderate To Severe Pain (6-10) Home Medications: Medication Instructions Recorded Confirmed Type Atorvastatin Calcium 40 mg PO DAILY 04/11/20 04/11/20 History Losartan [Cozaar] 50 mg PO DAILY 04/11/20 04/11/20 History glipiZIDE [Glipizide] 10 mg PO DAILY 04/11/20 04/11/20 History metFORMIN [Glucophage] 1,000 mg PO BID-WM 04/11/20 04/11/20 History Carvedilol [Coreg] 25 mg PO BID #60 tablet 04/13/20 Rx Cyclobenzaprine [Flexeril] 5 mg PO TID PRN #12 tab 04/13/20 Rx Gabapentin [Neurontin] 100 mg PO TID PRN #90 cap 04/13/20 Rx Naproxen [Naprosyn] 500 mg PO BID #60 tab 04/13/20 Rx Allergies: No Known Allergies Allergy (Unverified 04/11/20 11:38) - Discharge Instructions Activity:: Activity as Tolerated Nourishment:: Diabetic Diet - Follow up Plan Referrals: WESLY CORONADO MD [Primary Care Provider] - Disposition: HOME Quality - Care Measures CORE MEASURES:: N/A
== END 2020-04-13 15:15 | disposition home or self-care (01) | DRG 552 ==
LOC: ERS 06:51 → PACU-TCU 09:11 → INTOOBSV 09:11 → OBSVTOIN 04-12 15:23 → 3SE 04-12 15:29
PROVIDERS: ADMIT Internal Medicine; ATTEND Internal Medicine
DX: M48.02 Spinal stenosis, cervical region (principal); I16.0 Hypertensive urgency; Z51.5 Encounter for palliative care; Z20.822 Contact with and (suspected) exposure to COVID-19; I10 Essential (primary) hypertension; R93.7 Abnormal findings on diagnostic imaging of other parts of musculoskeletal system; M47.22 Other spondylosis with radiculopathy, cervical region; M50.121 Cervical disc disorder at C4-C5 level with radiculopathy; E11.69 Type 2 diabetes mellitus with other specified complication; E66.9 Obesity, unspecified; E78.5 Hyperlipidemia, unspecified; E86.0 Dehydration; E11.65 Type 2 diabetes mellitus with hyperglycemia; Z79.84 Long term (current) use of oral hypoglycemic drugs; Z79.899 Other long term (current) drug therapy; Z68.32 Body mass index [BMI] 32.0-32.9, adult
CPT/HCPCS: 0240U; 36415; 36416; 70450; 70496; 70498; 70553; 71045; 72141; 80048; 80053; 80061; 81003; 82550; 83605; 83630; 83690; 83735; 83880; 84443; 84484; 85025; 85610; 86140; 87045; 87046; 87324; 87427; 87449; 93005; 93010; 93306; 94760; 95712; 95816; 95819; 95957; 96374; A9579; G0378; J1815; Q9967

== ENCOUNTER 2020-06-12 09:09 | Emergency (ER) | payer SELFPAY ==
[2020-06-12 10:31] LABS: Bacteria/HPF None Seen HPF (None Seen); Bilirubin Negative (Negative); Blood, Urine 2+ (Negative); Clarity Clear (Clear); Glucose, Urine (Dipstick) Greater than 1000 mg/dL (Negative); Ketone, Urine 10 mg/dL (Negative); Leukocyte Negative Leu/uL (Negative); Nitrite Negative (Negative); Protein, Urine (Dipstick) 20 mg/dL (Neg-Trace); Specific Gravity, Urine 1.024 (1.002-1.036); Squamous Epithelial 0-3 HPF (0-3); Urobilinogen Normal mg/dL (Less than 2); WBC/HPF 0-3 HPF (0-3); pH, Urine 6.5 (5.0-9.0)
[2020-06-12 10:33] LABS: Sperm/HPF 2+ HPF (None Seen)
[2020-06-12] MEDS ORDERED: Ondansetron PF 4 MG/2 ML Vial ONE (10:47)
[2020-06-12] MEDS ORDERED: Ketorolac Tromethamine 30 MG/ML VIAL ONE (10:47)
[2020-06-12 11:12] LABS: ALT (SGPT) 22 U/L (8-55); AST (SGOT) 23 U/L (5-34); Albumin 3.9 g/dL (3.5-5.0); Alkaline Phosphatase 78 U/L (40-110); Anion Gap 17 mmol/L (10-20); BUN (Urea Nitrogen) 22 mg/dL (8.9-20.6); Bilirubin, Total 0.9 mg/dL (0.2-1.2); Calc. Creatinine Clearance 0 mL/min (70-130); Calcium 8.6 mg/dL (7.8-10.44); Carbon Dioxide 21 mmol/L (22-29); Chloride 100 mmol/L (98-107); Globulin 3.4 g/dL (2.4-3.5); Glucose 324 mg/dL (70-105); Lipase 12 U/L (8-78); Potassium 4.7 mmol/L (3.5-5.1); Protein, Total 7.3 g/dL (6.0-8.3); Sodium 133 mmol/L (136-145)
[2020-06-12 11:30] LABS: #Eosinphils 0.1 thou/uL (0.0-0.7); #Lymphocytes 2.1 thou/uL (1.20-3.40); #Monocytes 0.7 thou/uL (0.11-0.59); #Neutrophils 5.2 thou/uL (1.40-6.50); %Basophils 0.4 % (0.0-1.0); %Eosinophils 1.7 % (0.0-10.0); %Lymphocytes 25.5 % (21.0-51.0); %Monocytes 9.1 % (0.0-10.0); %Neutrophils 63.4 % (42.0-75.0); Hemoglobin 13.6 g/dL (14.0-18.0); Mean Corpuscular HGB CONC 33.5 g/dL (32.0-36.0); Mean Corpuscular Hemoglobin 29.5 pg (27.0-31.0); Mean Corpuscular Volume 88.2 fL (78.0-98.0); Mean Platelet Volume 9.4 fL (7.4-10.4); Platelet Count 159 thou/uL (130-400); RBC Distribution Width 11.6 % (11.5-14.5); Red Blood Cell (RBC) Count 4.62 mill/uL (4.70-6.10); White Blood Cell (WBC) Count 8.2 thou/uL (4.8-10.8)
== END 2020-06-12 12:50 | disposition home or self-care (01) ==
LOC: ERS 09:09
DX: N13.2 Hydronephrosis with renal and ureteral calculous obstruction (principal); R91.1 Solitary pulmonary nodule; I10 Essential (primary) hypertension; E78.00 Pure hypercholesterolemia, unspecified; E11.9 Type 2 diabetes mellitus without complications; Z79.84 Long term (current) use of oral hypoglycemic drugs; Z79.899 Other long term (current) drug therapy
CPT/HCPCS: 36415; 74176; 80053; 81003; 81015; 83605; 83690; 84484; 85025; 93005; 96374; 96375; J1885; J2405

== ENCOUNTER 2022-02-09 10:28 | Emergency (ER) | payer BC, SELFPAY ==
[2022-02-09] MEDS ORDERED: Ibuprofen 800 MG TAB ONE (11:22)
[2022-02-09] MEDS ORDERED: Acetaminophen 500 MG TAB ONE (11:22)
== END 2022-02-09 12:23 | disposition home or self-care (01) ==
LOC: ERS 10:28
DX: M25.512 Pain in left shoulder (principal); I10 Essential (primary) hypertension; E78.5 Hyperlipidemia, unspecified; E11.9 Type 2 diabetes mellitus without complications; Z79.4 Long term (current) use of insulin; Z79.84 Long term (current) use of oral hypoglycemic drugs

== ENCOUNTER 2025-02-14 08:39 | Outpatient (CLI) | payer OTHER | END 2025-02-14 08:40 | disposition home or self-care (01) | LOC: SCSMRI 08:39 | PROVIDERS: ATTEND Family Medicine | DX: M48.061 Spinal stenosis, lumbar region without neurogenic claudication (principal); R32 Unspecified urinary incontinence; M48.07 Spinal stenosis, lumbosacral region | CPT/HCPCS: 72158 ==